=== PATIENT | female | born 1960 | race African-American/Black ===

== ENCOUNTER 2020-03-22 21:58 | Observation (INO) | payer OTHER ==
[~2020-03-22] VITALS: Ht 165.1 cm; Wt 108.6 kg
[2020-03-22] MEDS ORDERED: IV RINGERS SOLUTION,LACTATED 1,000 ML IV SCH (22:30)
[2020-03-22] MEDS ORDERED: NITROGLYCERIN OINT 1 GM PACKET. TP ONE (22:30)
[2020-03-22] MEDS ORDERED: ASPIRIN CHEWABLE 81 MG TABLET. PO ONE (22:30)
--- NOTE | 2020-03-22 22:39 | RAD ---
Exam: Chest 2 views INDICATION: Chest pain TECHNIQUE: Frontal and lateral views the chest Comparisons: None FINDINGS: The cardiomediastinal silhouette and pulmonary vessels are within normal limits. The lung and pleural spaces are clear. IMPRESSION: No acute cardiopulmonary process. Electronically signed by: Abhijeet Davenport MD (03/22/2020 10:36 PM) [id number]
[2020-03-22 22:50] LABS: BASO # 0.1 x10^3/uL (0.0-0.2); BASO % 1 % (0-3); EOS # 0.2 x10^3/uL (0.0-0.7); EOS % 4 % (0-3); HEMOGLOBIN 13.6 g/dL (12.0-15.5); LYMPH # 2.3 x10^3/uL (1.0-4.8); LYMPH % 48 % (24-48); MEAN CORPUSCULAR HEMOGLOBIN 29 pg (25-35); MEAN CORPUSCULAR HGB CONC 34 g/dL (31-37); MEAN CORPUSCULAR VOLUME 84 fL (79-100); MONO # 0.3 x10^3/uL (0.0-1.1); MONO % 7 % (0-9); NEUT % 41 % (31-73); PLATELET COUNT 189 x10^3/uL (140-400); RED BLOOD COUNT 4.75 x10^6/uL (3.50-5.40); RED CELL DISTRIBUTION WIDTH 14.5 % (11.5-14.5); WHITE BLOOD COUNT 4.8 x10^3/uL (4.0-11.0)
[2020-03-22 23:01] LABS: ANION GAP 9 (6-14); BLOOD UREA NITROGEN 20 mg/dL (7-20); CALCIUM 9.3 mg/dL (8.5-10.1); CARBON DIOXIDE 28 mmol/L (21-32); CHLORIDE 102 mmol/L (98-107); GFR 56.7; GLUCOSE 111 mg/dL (70-99); SODIUM 139 mmol/L (136-145)
--- NOTE | 2020-03-22 23:09 | PHYS DOC ---
Past History Past Medical History: High Cholesterol, Hypertension, Other Additional Past Medical Histor: BORERLINE DM Past Surgical History: , Hysterectomy, Tubal ligation Alcohol Use: Occasionally General Adult EDM: Chief Complaint: CHEST PAIN HPI: HPI: ..." I got this chest pain tonight...here in the center.. it is about gone now...the [employer] administrator's gave me some nitro..and aspirin...I do have high cholesterol...but never had this patric chest pain before...." Patient is a 59 year old female who presents with above chest pain that started in the center of her chest and radiated to the left side. Onset of pain was approximately 1800 hrs. Patient rated her pain 4 out of 10 at that time however pain markedly reduced after 1 nitro and aspirin given by paramedics. Does have past history of elevated cholesterol and borderline diabetes and hypertension. Was a former smoker 30 years ago but has not smoked the past 30 years. Patient denies any trauma. Patient never had a heart catheter stress test. Patient normally follows at [facility]. There is no specific history of cardiac disorder. No history of pulmonary embolisms or DVTs. Review of Systems: Review of Systems: Constitutional: Denies fever or chills Eyes: Denies change in visual acuity HENT: Denies nasal congestion or sore throat Respiratory: Denies cough or shortness of breath Cardiovascular: Complaints of chest pain GI: Denies abdominal pain, nausea, vomiting, bloody stools or diarrhea : Denies dysuria Musculoskeletal: Denies back pain or joint pain Integument: Denies rash Neurologic: Denies headache, focal weakness or sensory changes Endocrine: Denies polyuria or polydipsia Lymphatic: Denies swollen glands Psychiatric: Denies depression or anxiety Heart Score: HEART Score for Chest Pain: HEART Score for Chest Pain Response (Comments) Value History Slighlty/Non-Suspicious 0 ECG Normal 0 Age >45 - < 65 1 Risk Factors 1 or 2 Risk Factors 1 Troponin < Normal Limit 0 Total 2 Risk Factors: Risk Factors: DM, Current or recent (<one month) smoker, HTN, HLP, family history of CAD, obesity. Risk Scores: Score 0 - 3: 2.5% MACE over next 6 weeks - Discharge Home Score 4 - 6: 20.3% MACE over next 6 weeks - Admit for Clinical Observation Score 7 - 10: 72.7% MACE over next 6 weeks - Early Invasive Strategies Family History: Family History: Noncontributory Current Medications: Current Meds: Current Medications Medications (Trade) Dose Ordered Sig/Connie Start Time Stop Time Status Last Admin Dose Admin Aspirin (Aspirin Chewable) 324 mg 1X ONCE 03/22/20 22:30 03/22/20 22:31 DC Lactated Ringer's 1,000 ml @ 1,000 mls/hr Q1H 03/22/20 22:30 03/22/20 23:29 03/22/20 22:31 1,000 MLS/HR Nitroglycerin (Nitro-Bid Oint) 0.5 inch 1X ONCE 03/22/20 22:30 03/22/20 22:31 DC 03/22/20 22:31 0.5 INCH Allergies: Allergies: Allergies Coded Allergies Type Severity Reaction Last Updated Verified Sulfa (Sulfonamide Antibiotics) Allergy Intermediate 03/22/20 Yes bupropion Allergy Intermediate 03/22/20 Yes Physical Exam: PE: Constitutional: Mild distress, non-toxic appearance. [] HENT: Normocephalic, atraumatic, bilateral external ears normal, oropharynx moist, no oral exudates, nose normal. [] Eyes: PERRLA, EOMI, conjunctiva normal, no discharge. [] Neck: Normal range of motion, no tenderness, supple, no stridor. [] Cardiovascular:Heart rate regular rhythm, no murmur [] Lungs & Thorax: Bilateral breath sounds clear to auscultation [] Abdomen: Bowel sounds normal, soft, no tenderness, no masses, no pulsatile masses. Obese. Old surgery scars Skin: Warm, dry, no erythema, no rash. [] Back: No tenderness, no CVA tenderness. [] Extremities: No tenderness, no cyanosis, no clubbing, ROM intact, no edema. No cording appreciated Neurologic: Alert and oriented X 3, normal motor function, normal sensory function, no focal deficits noted. [] Psychologic: Affect anxious, judgement normal, mood normal. [] Current Patient Data: Labs: Laboratory Tests Test 03/22/20 22:35 White Blood Count 4.8 x10^3/uL (4.0-11.0) Red Blood Count 4.75 x10^6/uL (3.50-5.40) Hemoglobin 13.6 g/dL (12.0-15.5) Hematocrit 40.0 % (36.0-47.0) Mean Corpuscular Volume 84 fL (79-100) Mean Corpuscular Hemoglobin 29 pg (25-35) Mean Corpuscular Hemoglobin Concent 34 g/dL (31-37) Red Cell Distribution Width 14.5 % (11.5-14.5) Platelet Count 189 x10^3/uL (140-400) Neutrophils (%) (Auto) 41 % (31-73) Lymphocytes (%) (Auto) 48 % (24-48) Monocytes (%) (Auto) 7 % (0-9) Eosinophils (%) (Auto) 4 % (0-3) H Basophils (%) (Auto) 1 % (0-3) Neutrophils # (Auto) 2.0 x10^3uL (1.8-7.7) Lymphocytes # (Auto) 2.3 x10^3/uL (1.0-4.8) Monocytes # (Auto) 0.3 x10^3/uL (0.0-1.1) Eosinophils # (Auto) 0.2 x10^3/uL (0.0-0.7) Basophils # (Auto) 0.1 x10^3/uL (0.0-0.2) Prothrombin Time 9.5 SEC (9.4-11.4) Prothrombin Time INR 0.9 (0.9-1.1) Activated Partial Thromboplast Time 26 SEC (23-33) D-Dimer (Kamini) < 0.19 mg/L (0.00-0.50) Vital Signs: Vital Signs Date Time Temp Pulse Resp B/P (MAP) Pulse Ox O2 Delivery O2 Flow Rate FiO2 03/22/20 22:31 73 137/73 03/22/20 22:12 97.6 16 99 Room Air EKG: EKG: My interpretation EKG shows a sinus rhythm at 73 bpm. No findings acute morphology. [] Radiology/Procedures: Radiology/Procedures: [][address] [address] IMAGING REPORT Signed PATIENT: DARWIN MARCUM AACCOUNT: [id number] : 1960 LOCATION: ER AGE: 59 SEX: F EXAM STATUS: PRE ER ORD. PHYSICIAN: LUDIVINA PARADA MD REASON: CHEST PAIN PROCEDURE: CHEST PA & LATERAL Exam: Chest 2 views INDICATION: Chest pain TECHNIQUE: Frontal and lateral views the chest Comparisons: None FINDINGS: The cardiomediastinal silhouette and pulmonary vessels are within normal limits. The lung and pleural spaces are clear. IMPRESSION: No acute cardiopulmonary process. Electronically signed by: Abhijeet Nobles MD (03/22/2020 10:36 PM) [id number] DICTATED AND SIGNED BY: ABHIJEET NOBLES MD DATE: 03/22/202235 CC: LUDIVINA PARADA MD ~ Course & Med Decision Making: Course & Med Decision Making Pertinent Labs and Imaging studies reviewed. (See chart for details) Patient admitted to and to obtain cardiac consult. Impression: 1, Chest Pain 2. Hx Elevated Cholesterol 3. Hx. of HTN 4. Elevated AST 64 5. Hx. of Elevated glucose ( 111 to night) 6. Hx. of Elevated CK 317 [] Dragon Disclaimer: Dragon Disclaimer: This electronic medical record was generated, in whole or in part, using a voice recognition dictation system. Departure Departure: Disposition: 01 HOME/RESIDENCE PRIOR TO ADM Condition: STABLE Referrals: NON,STAFF (PCP) Dragon Disclaimer This chart was dictated in whole or in part using Voice Recognition software in a busy, high-work load, and often noisy Emergency Department environment. It may contain unintended and wholly unrecognized errors or omissions. LUDIVINA PARADA MD March 22, 2020 23:09
[2020-03-22 23:13] LABS: ALBUMIN 3.5 g/dL (3.4-5.0); ALT (SGPT) 39 U/L (14-59); LIPASE 119 U/L (73-393); MAGNESIUM 2.1 mg/dL (1.8-2.4); TOTAL BILIRUBIN 0.5 mg/dL (0.2-1.0); TOTAL PROTEIN 7.2 g/dL (6.4-8.2)
[2020-03-22 23:38] LABS: ALK PHOS 62 U/L (46-116); AST (SGOT) 64 U/L (15-37); POTASSIUM 5.1 mmol/L (3.5-5.1)
[2020-03-23] MEDS ORDERED: ONDANSETRON PF 4 MG/2 ML VIAL. IVP PRN
[2020-03-23] MEDS ORDERED: ACETAMINOPHEN 325 MG TABLET PO PRN
[2020-03-23] MEDS ORDERED: ANTI-COAG MONITOR BY PHARMACY. MC PRN (00:15)
[2020-03-23 01:30] VITALS: BP 144/85
[2020-03-23 01:50] LABS: DIRECT BILIRUBIN < 0.1 mg/dL (0.0-0.2)
--- NOTE | 2020-03-23 02:12 | EKG ---
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
[2020-03-23] MEDS ORDERED: CRESTOR10 MG PO (02:21)
[2020-03-23] MEDS ORDERED: ESCITALOPRAM OXA5 MG PO (02:34)
[2020-03-23] MEDS ORDERED: AMLO5TAB4 PO (02:34)
[2020-03-23] MEDS ORDERED: POTA20TA4 PO ×2 (02:34→12:34)
[2020-03-23] MEDS ORDERED: METF500T16 PO (02:34)
[2020-03-23] MEDS ORDERED: ASCO100T4 PO (02:34)
[2020-03-23] MEDS ORDERED: ZOLP5TAB PO (02:34)
[2020-03-23] MEDS ORDERED: CYAN-25 PO (02:34)
[2020-03-23] MEDS ORDERED: ALBU6.7H8 IH (02:34)
[2020-03-23] MEDS ORDERED: CHLO25TA9 PO (02:34)
[2020-03-23] MEDS ORDERED: LEVO88TA2 PO (02:34)
[2020-03-23] MEDS ORDERED: CETI10TA24 PO (02:34)
[2020-03-23] MEDS: ENOXAPARIN ** NOTE DOSE ** SYRINGE SQ SCH ×2 (03:09→08:15)
[2020-03-23 05:05] LABS: CALCIUM 8.6 mg/dL (8.5-10.1); CREATININE 0.9 mg/dL (0.6-1.0); GFR 77.5; POTASSIUM 3.2 mmol/L (3.5-5.1)
[2020-03-23 05:45] VITALS: BP 121/75
[2020-03-23] MEDS ORDERED: ALBUTEROL SULFATE 8GM INHALER. IH PRN (05:45)
[2020-03-23] MEDS ORDERED: ZOLPIDEM 5 MG TABLET. PO PRN (05:45)
[2020-03-23] MEDS ORDERED: LEVOTHYROXINE 88 MCG TABLET PO SCH (06:00)
[2020-03-23] MEDS ORDERED: POTASSIUM CHLORIDE 20 MEQ TABLET.ER. PO ONE (06:00)
[2020-03-23] MEDS ORDERED: ASPIRIN CHEWABLE 81 MG TABLET. PO SCH (08:00)
[2020-03-23] MEDS ORDERED: metFORMIN 500 MG TABLET PO SCH (08:00)
[2020-03-23] MEDS ORDERED: CITALOPRAM 10 MG TABLET. PO SCH (09:00)
[2020-03-23] MEDS ORDERED: CYANOCOBALAMIN (VITAMIN B-12) 1,000 MCG TABLET. PO SCH (09:00)
[2020-03-23] MEDS ORDERED: ASCORBIC ACID 500 MG TABLET PO SCH (09:00)
[2020-03-23] MEDS ORDERED: CHLORTHALIDONE 25 MG TABLET PO SCH (09:00)
[2020-03-23] MEDS ORDERED: CETIRIZINE HCL 10 MG TABLET PO SCH (09:00)
[2020-03-23] MEDS ORDERED: amLODIPine BESYLATE 5 MG TABLET PO SCH (09:00)
[2020-03-23] MEDS ORDERED: NITROGLYCERIN OINT 1 GM PACKET. TP SCH (09:00)
[2020-03-23 11:00] VITALS: BP 118/69
[2020-03-23] MEDS ORDERED: ESCITALOPRAM OX10 MG PO (12:34)
--- NOTE | 2020-03-23 13:13 | NUR ---
pt dc to home. Pt is able to verbalize understanding of poc and discharge. PT to have a stress test as OP per cardiology. PT given 2 RX and work note. PT left via WC with driving. Mayte Christian PROMOTIONS MANAGER CMSRN [place]-
--- NOTE | 2020-03-23 13:46 | HP ---
ADMIT DATE: 03/22/2020 HISTORY OF PRESENT ILLNESS: The patient is a 59-year-old -[place] female patient who presented to the Emergency Room complaining of retrosternal chest pain that she rated about 4/10 that lasted almost an hour. Denied any nausea or vomiting. Denied any diaphoresis, though she did complain of some shortness of breath. She was given an aspirin and one sublingual nitroglycerin and her pain has resolved. She was evaluated in the Emergency Room and has had an EKG, which showed that she was in sinus rhythm at 73 beats per minute. Chest x-ray was unremarkable. The cardiomediastinal silhouette and pulmonary vessels are within normal limits. Lungs and pleural spaces are clear. Her troponin was less than 0.017. The patient was admitted to do 2 more sets of cardiac enzymes, check her fasting lipid profile and consult the cardiology team. PAST MEDICAL HISTORY: Significant for hypertension, hyperlipidemia, depression, bronchial asthma as well as diabetes. She said that she is prediabetic and she is on metformin. PAST SURGICAL HISTORY: Significant for , tubal ligation, partial hysterectomy, and cataract extraction of her left eye. ALLERGIES: SHE IS ALLERGIC TO SULFA DRUGS AND WELLBUTRIN. MEDICATIONS: She is currently on following medications: She is on cetirizine for Zyrtec 10 mg once a day, albuterol sulfate inhaler every 4-6 hours as needed, Crestor 10 mg at bedtime, amlodipine 5 mg once a day, escitalopram oxalate 10 mg once a day, Ambien 5 mg daily, potassium chloride 20 mEq once a day, hydrochlorothiazide 25 mg once a day, metformin 500 mg twice a day, levothyroxine sodium 88 mcg once a day and vitamin B complex 1 tablet once a day, cyanocobalamin, ascorbic acid 100 mg once a day. FAMILY HISTORY: She has 1 older brother who is healthy, 2 younger brothers, 1 at age of 51 because of complication of diabetes, the other one at the age of 41 because of alcoholism, morbid obesity, bipolar disorder and hypertension. She does not know her biological father. Her mother at the age of 59 because of breast cancer. SOCIAL HISTORY: She is , has 4 children. She quit smoking 30 years ago. Drinks alcohol occasionally. She does not use any drugs. 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 REVIEW OF SYSTEMS: She has bilateral cataract, underwent cataract extraction, left eye. Denied any glaucoma or macular degeneration. Denied any earache, tinnitus, sensorineural deafness. Denied nosebleeds, stuffy nose or postnasal drip. Denied any sore throat, sore tongue, toothache, hoarseness of voice or difficulty swallowing. Denied any nausea, vomiting, diarrhea or constipation. Denied any hematemesis, melena, or hematochezia. Denied any dysuria, frequency or hematuria. Did complain of chest pain or shortness of breath. Denied any orthopnea or paroxysmal nocturnal dyspnea. Denied any cough, phlegm or hemoptysis. PHYSICAL EXAMINATION: GENERAL: On arrival to the Emergency Room, she looked well and was clearly in no apparent respiratory distress. No pallor, jaundice, cyanosis or thyromegaly. No jugular venous distention. No lower limb edema. VITAL SIGNS: Her heart rate was 76, blood pressure was 137/73, temperature was 97.6, respiratory rate was 16, and oxygen saturation was 99%. HEAD, EYES, EARS, NOSE AND THROAT: Showed normocephalic, atraumatic. NECK: Supple. HEART: Showed normal first and second heart sounds. No gallop, rub or murmur. CHEST: Clear to auscultation. No crepitation or rhonchi. ABDOMEN: Distended, soft, nontender. NEUROLOGICALLY: She was awake, alert, responding appropriately. All cranial nerves intact. EXTREMITIES: He moves extremities without difficulty. She ambulates without assistance or assistive devices. LABORATORY DATA: Her lab work on arrival showed a serum sodium 139, potassium 5.1. Her chloride was 102, bicarbonate was 28, anion gap of 9, BUN 20, creatinine 1.1, estimated GFR was 56 mL per minute. Her glucose 111, calcium was 9.3, magnesium was 2.1. Total bilirubin, AST, ALT, alkaline phosphatase were all normal. CK was 317. First set of cardiac enzymes showed troponin to be less than 0.017. Her total protein was 7.2, albumin was 3.5. Her serum lipase was 119. Her prothrombin time was 9.5, INR of 0.9, aPTT was 26 and D-dimer was less than 0.19. Her white cell count was 4800, hemoglobin 13, hematocrit 40, MCV 84 and platelet count of 189,000 and her EKG showed that she was in sinus rhythm at a heart rate of 72 beats per minute with no ST segment elevation and her chest x-ray showed cardiomediastinal silhouette and pulmonary vessels are within normal limits. The lungs and pleural spaces are clear. ASSESSMENT AND PLAN: The patient was admitted to do 2 more sets of cardiac enzymes, check her fasting lipid profile as well as thyroid function tests. We will consult the cardiology team and we will decide the further management accordingly. BENNETT GAYLE MD DR: BELL/tacho JOB#: [id number] / [id number]
--- NOTE | 2020-03-23 13:56 | DS ---
DATE OF DISCHARGE: 03/23/2020 HISTORY OF PRESENT ILLNESS: The patient is a 59-year-old -[place] female patient who came to the Emergency Room with a complaint of retrosternal chest pain with 4/10 in severity, associated with shortness of breath, but no nausea, no vomiting, no diaphoresis. It did radiate to her left upper extremity, lasted almost an hour, relieved by 1 sublingual nitroglycerin. She has had 3 sets of cardiac enzymes, showed troponin to be less than 0.017. Her EKG showed she was in sinus rhythm with no evidence of ST segment elevation or depression. Her fasting lipid profile showed her serum triglycerides were 137, total cholesterol ____, LDL was 63, VLDL was 27. Her HDL cholesterol was 53 and the ratio was 2. Her TSH was normal at 1.810. She was seen in consultation by the Cardiology team and acute myocardial infarction was ruled out. The patient was discharged home and she will have outpatient stress test. PHYSICAL EXAMINATION: GENERAL: When I saw her today, she looked well and was clearly in no apparent respiratory distress. No pallor, jaundice, cyanosis or thyromegaly. No jugular venous distention or limb edema. VITAL SIGNS: Her heart rate was 72, blood pressure 121/75, temperature was 97.5, respiratory rate was 18 and oxygen saturation was 97%. The rest of clinical examination is stable. LABORATORY DATA: Her lab work showed that she has 3 sets of cardiac enzymes that showed troponin to be less than 0.017. Her fasting lipid profile is well within normal range. DISCHARGE MEDICATIONS: The patient was discharged home to continue on Lexapro 10 mg once a day and potassium chloride 20 mEq twice a day. Should continue also on her albuterol sulfate as needed, amlodipine besylate for Norvasc 5 mg once a day, ascorbic acid 100 mg once a day, cetirizine 10 mg once a day, chlorthalidone 25 mg once a day, cyanocobalamin 2000 mcg once a day, levothyroxine sodium 88 mcg once a day, metformin 500 mg twice a day, Crestor 10 mg at bedtime and Ambien 5 mg at bedtime. FINAL DISCHARGE DIAGNOSES: 1. Chest pain, acute myocardial infarction ruled out. The patient has multiple other medical problems including: A. Hypertension. B. Hyperlipidemia. C. Diabetes. D. Bronchial asthma. E. Hypothyroidism. BENNETT GAYLE MD DR: Dominga JOB#: [id number] / [id number]
--- NOTE | 2020-03-23 15:25 | PDOC2 ---
CARDIAC CONSULT DATE OF CONSULT Date Of Consult DATE: 03/23/20 TIME: 15:20 REASON FOR CONSULT Reason for Consult Chest pain REFERRING PHYSICIAN Referring Physician Dr. Nicole SOURCE Source: Chart review, Patient HPI History of Present Illness The patient is a 59-year-old female who was admitted through the emergency room last evening for episodes of chest pain. The patient states the pain lasted approximately 1 hour and was associated with mild shortness of breath. Her EKG showed no acute ischemic changes. Chest x-ray showed no acute process. Troponin x2 has been normal. She has been feeling better overnight and denies any chest pain today. The patient does however have risk factors of hypertension, hyperlipidemia and borderline diabetes. She looks and feels well this morning. PAST MEDICAL HISTORY Cardiovascular: HTN, hyperipidemia Endocrine: Diabetes PAST SURGICAL HISTORY Past Surgical History: , Tubal Ligation, Hysterectomy FAMILY HISTORY Family History: Cancer, Diabetes SOCIAL HISTORY Smoke: Quit ALCOHOL: occassional CURRENT MEDICATIONS Current Medications Current Medications Aspirin (Aspirin Chewable) 324 mg 1X ONCE PO ; Start 03/22/20 at 22:30; Stop 03/22/20 at 22:31; Status DC Lactated Ringer's 1,000 ml @ 1,000 mls/hr Q1H IV Last administered on 03/22/20at 22:31; Start 03/22/20 at 22:30; Stop 03/22/20 at 23:29; Status DC Nitroglycerin (Nitro-Bid Oint) 0.5 inch 1X ONCE TP Last administered on 03/22/20at 22:31; Start 03/22/20 at 22:30; Stop 03/22/20 at 22:31; Status DC Ondansetron HCl (Zofran) 4 mg PRN Q4HRS PRN IVP NAUSEA/VOMITING; Start 03/23/20 at 00:00; Stop 03/23/20 at 14:08; Status DC Acetaminophen (Tylenol) 650 mg PRN Q4HRS PRN PO FEVER > 100.3'F; Start 03/23/20 at 00:00; Stop 03/23/20 at 14:08; Status DC Enoxaparin Sodium (Lovenox 100mg Syringe) 100 mg BID SQ Last administered on 03/23/20at 08:15; Start 03/23/20 at 00:30; Stop 03/23/20 at 14:08; Status DC Aspirin (Aspirin Chewable) 81 mg DAILYWBKFT PO Last administered on 03/23/20at 08:16; Start 03/23/20 at 08:00; Stop 03/23/20 at 14:08; Status DC Nitroglycerin (Nitro-Bid Oint) 0.5 inch TID TP ; Start 03/23/20 at 09:00; Stop 03/23/20 at 14:08; Status DC Info (Anti-Coagulation Monitoring By Pharmacy) 1 each PRN DAILY PRN MC SEE COMMENTS; Start 03/23/20 at 00:15; Stop 03/23/20 at 14:08; Status DC Potassium Chloride (Klor-Con) 40 meq 1X ONCE PO Last administered on 03/23/20at 06:24; Start 03/23/20 at 06:00; Stop 03/23/20 at 06:03; Status DC Amlodipine Besylate (Norvasc) 5 mg DAILY PO Last administered on 03/23/20at 08:16; Start 03/23/20 at 09:00; Stop 03/23/20 at 14:08; Status DC Cetirizine HCl (ZyrTEC) 10 mg DAILY PO Last administered on 03/23/20at 08:16; Start 03/23/20 at 09:00; Stop 03/23/20 at 14:08; Status DC Chlorthalidone (Thalitone) 25 mg DAILY PO Last administered on 03/23/20at 08:15; Start 03/23/20 at 09:00; Stop 03/23/20 at 14:08; Status DC Cyanocobalamin (Vitamin B-12) 2,000 mcg DAILY PO Last administered on 03/23/20at 08:16; Start 03/23/20 at 09:00; Stop 03/23/20 at 14:08; Status DC Levothyroxine Sodium (Synthroid) 88 mcg DAILY06 PO Last administered on 03/23/20at 06:24; Start 03/23/20 at 06:00; Stop 03/23/20 at 14:08; Status DC Metformin HCl (Glucophage) 500 mg BIDWMEALS PO Last administered on 03/23/20at 08:15; Start 03/23/20 at 08:00; Stop 03/23/20 at 14:08; Status DC Potassium Chloride (Klor-Con) 20 meq BID PO ; Start 03/23/20 at 21:00; Stop 03/02 01/18 at 14:08; Status DC Zolpidem Tartrate (Ambien) 5 mg PRN QHS PRN PO INSOMNIA; Start 03/23/20 at 05:45; Stop 03/23/20 at 14:08; Status DC Ascorbic Acid (Vitamin C) 500 mg DAILY PO Last administered on 03/23/20at 08:16; Start 03/23/20 at 09:00; Stop 03/23/20 at 14:08; Status DC Citalopram Hydrobromide (CeleXA) 10 mg DAILY PO Last administered on 03/23/20at 08:15; Start 03/23/20 at 09:00; Stop 03/23/20 at 14:08; Status DC Atorvastatin Calcium (Lipitor) 40 mg QHS PO ; Start 03/23/20 at 21:00; Stop 03/02 01/18 at 14:08; Status DC Albuterol Sulfate (Ventolin Hfa Inhaler) 1 puff PRN DAILY PRN IH SHORTNESS OF BREATH; Start 03/23/20 at 05:45; Stop 03/23/20 at 14:08; Status DC Active Scripts Active Klor-Con M20 (Potassium Chloride) 20 Meq Tab.er.prt 1 Tab PO BID 30 Days Escitalopram Oxalate 10 Mg Tablet 1 Tab PO DAILY Reported Vitamin C (Ascorbic Acid) 100 Mg Tablet 1 Tab PO DAILY 30 Days Vitamin B-12 (Cyanocobalamin (Vitamin B-12)) 1,000 Mcg Tablet 2 Tab PO DAILY 30 Days Proventil Hfa (Albuterol Sulfate) 6.7 Gm Hfa.aer.ad 6.7 Gm IH PRN PRN Zyrtec (Cetirizine Hcl) 10 Mg Tablet 10 Mg PO DAILY Ambien (Zolpidem Tartrate) 5 Mg Tablet 5 Mg PO PRN QHS PRN Synthroid (Levothyroxine Sodium) 88 Mcg Tablet 1 Tab PO DAILY Metformin Hcl 500 Mg Tablet 1 Tab PO BID Chlorthalidone (Chlorthalidone) 25 Mg Tablet 25 Mg PO DAILY Norvasc (Amlodipine Besylate) 5 Mg Tablet 1 Tab PO DAILY Crestor (Rosuvastatin Calcium) 10 Mg Tablet 10 Mg PO HS ALLERGIES Allergies: Coded Allergies: Sulfa (Sulfonamide Antibiotics) (Verified Allergy, Intermediate, 5/22/20) bupropion (Verified Allergy, Intermediate, 03/22/20) ROS Cardiovascular: yes: Chest Pain PHYSICAL EXAM General: No acute distress HEENT: Atraumatic Lungs: Clear to auscultation Heart: Regular rate, Normal S2 Abdomen: Normal bowel sounds VITALS Vital Signs Vital Signs Date Time Temp Pulse Resp B/P (MAP) Pulse Ox O2 Delivery O2 Flow Rate FiO2 03/23/20 11:00 98.3 74 20 118/69 (85) 98 Room Air LABS LABS Laboratory Tests Test 03/22/20 22:35 03/23/20 00:36 03/23/20 04:45 White Blood Count 4.8 x10^3/uL (4.0-11.0) Red Blood Count 4.75 x10^6/uL (3.50-5.40) Hemoglobin 13.6 g/dL (12.0-15.5) Hematocrit 40.0 % (36.0-47.0) Mean Corpuscular Volume 84 fL (79-100) Mean Corpuscular Hemoglobin 29 pg (25-35) Mean Corpuscular Hemoglobin Concent 34 g/dL (31-37) Red Cell Distribution Width 14.5 % (11.5-14.5) Platelet Count 189 x10^3/uL (140-400) Neutrophils (%) (Auto) 41 % (31-73) Lymphocytes (%) (Auto) 48 % (24-48) Monocytes (%) (Auto) 7 % (0-9) Eosinophils (%) (Auto) 4 % (0-3) Basophils (%) (Auto) 1 % (0-3) Neutrophils # (Auto) 2.0 x10^3uL (1.8-7.7) Lymphocytes # (Auto) 2.3 x10^3/uL (1.0-4.8) Monocytes # (Auto) 0.3 x10^3/uL (0.0-1.1) Eosinophils # (Auto) 0.2 x10^3/uL (0.0-0.7) Basophils # (Auto) 0.1 x10^3/uL (0.0-0.2) Prothrombin Time 9.5 SEC (9.4-11.4) Prothromb Time International Ratio 0.9 (0.9-1.1) Activated Partial Thromboplast Time 26 SEC (23-33) D-Dimer (Kamini) < 0.19 mg/L (0.00-0.50) Sodium Level 139 mmol/L (136-145) 140 mmol/L (136-145) Potassium Level 5.1 mmol/L (3.5-5.1) 3.2 mmol/L (3.5-5.1) Chloride Level 102 mmol/L (98-107) 104 mmol/L (98-107) Carbon Dioxide Level 28 mmol/L (21-32) 28 mmol/L (21-32) Anion Gap 9 (6-14) 8 (6-14) Blood Urea Nitrogen 20 mg/dL (7-20) 18 mg/dL (7-20) Creatinine 1.0 mg/dL (0.6-1.0) 0.9 mg/dL (0.6-1.0) Estimated GFR (Cockcroft-Gault) 56.7 77.5 Glucose Level 111 mg/dL (70-99) 142 mg/dL (70-99) Calcium Level 9.3 mg/dL (8.5-10.1) 8.6 mg/dL (8.5-10.1) Magnesium Level 2.1 mg/dL (1.8-2.4) Total Bilirubin 0.5 mg/dL (0.2-1.0) Direct Bilirubin < 0.1 mg/dL (0.0-0.2) Aspartate Amino Transf (AST/SGOT) 64 U/L (15-37) Alanine Aminotransferase (ALT/SGPT) 39 U/L (14-59) Alkaline Phosphatase 62 U/L (46-116) Creatine Kinase 317 U/L (26-192) Troponin I Quantitative < 0.017 ng/mL (0-0.055) < 0.017 ng/mL (0-0.055) < 0.017 ng/mL (0-0.055) GH-Gfw-W-Type Natriuretic Peptide 9 pg/mL (0-124) Total Protein 7.2 g/dL (6.4-8.2) Albumin 3.5 g/dL (3.4-5.0) Lipase 119 U/L (73-393) Thyroid Stimulating Hormone (TSH) 1.810 uIU/mL (0.358-3.740) Triglycerides Level 137 mg/dL (0-150) Cholesterol Level 143 mg/dL (0-200) LDL Cholesterol, Calculated 63 mg/dL (0-100) VLDL Cholesterol, Calculated 27 mg/dL (0-40) Non-HDL Cholesterol Calculated 90 mg/dL (0-129) HDL Cholesterol 53 mg/dL (40-60) Cholesterol/HDL Ratio 2.0 IMAGES IMAGES Chest x-ray without acute changes. EKG EKG Normal sinus rhythm without ischemic changes. ASSESSMENT/PLAN Assessment/Plan 1. Chest pain. Patient's pain has resolved. She looks and feels well today. EKG shows no ischemic changes. Troponin x2 has been normal and chest x-ray shows no acute processes. Patient is doing quite well today but does have risk factors of hypertension, hyperlipidemia and borderline diabetes. Would increase activities. If she is feeling well with increased activity she may be discharged from a cardiac viewpoint. She will need outpatient follow-up including a probable stress test. We will contact the patient to either schedule it through our office or through [facility]. 2. Hypertension. Controlled. 3. Hyperlipidemia. Continue present treatment. 4. Diabetes mellitus. Continue present treatments. Follow-up through her primary physician. Thank you for allowing us to participate in the care of your patient. BRIAN RICARDO MD March 23, 2020 15:25
[2020-03-23] MEDS ORDERED: ATORVASTATIN CALCIUM 20 MG TABLET PO SCH (21:00)
[2020-03-23] MEDS ORDERED: POTASSIUM CHLORIDE 20 MEQ TABLET.ER. PO SCH (21:00)
== END 2020-03-23 13:07 | disposition home or self-care (01) ==
LOC: ER 21:58 → 1 SOUTH 23:00
PROVIDERS: ADMIT Internal Medicine; ATTEND Internal Medicine
DX: R07.9 Chest pain, unspecified (principal); I10 Essential (primary) hypertension; E78.5 Hyperlipidemia, unspecified; E11.9 Type 2 diabetes mellitus without complications; E03.9 Hypothyroidism, unspecified; J45.909 Unspecified asthma, uncomplicated; F32.9 Major depressive disorder, single episode, unspecified; E78.00 Pure hypercholesterolemia, unspecified; Z87.891 Personal history of nicotine dependence; Z90.711 Acquired absence of uterus with remaining cervical stump
CPT/HCPCS: 36415; 71046; 80048; 80061; 80076; 82550; 83690; 83735; 83880; 84443; 84484; 85025; 85379; 85610; 85730; 86705; 86709; 86803; 87340; 93005; 96372; 99284; G0378; J1650; J7120; G0379; 99285-25

== ENCOUNTER → 2021-11-19 | Day surgery (SDC) | payer OTHER ==
[~2021-11-19] MED LIST: ALBU6.7H8 IH; AMLO5TAB4 PO; ASCO100T4 PO; CETI10TA74 PO; CHLO25TA9 PO; CRESTOR10 MG PO; CYAN-25 PO; ESCITALOPRAM OX10 MG PO; ESCITALOPRAM OXA5 MG PO; LEVO88TA2 PO; METF500T16 PO; POTA-121 PO; POTA20TA4 PO; ZOLP5TAB PO
[2021-11-19 14:17] VITALS: BP 158/80
== END | disposition home or self-care (01) ==
LOC: SURG 14:09
PROVIDERS: ATTEND Anesthesiology
DX: M54.50 Low back pain, unspecified (principal); M47.816 Spondylosis without myelopathy or radiculopathy, lumbar region; M48.02 Spinal stenosis, cervical region; M79.18 Myalgia, other site; M51.36 Other intervertebral disc degeneration, lumbar region; J45.909 Unspecified asthma, uncomplicated; E11.9 Type 2 diabetes mellitus without complications; G47.30 Sleep apnea, unspecified; I10 Essential (primary) hypertension; Z90.710 Acquired absence of both cervix and uterus; Z98.890 Other specified postprocedural states; Z79.899 Other long term (current) drug therapy; Z98.51 Tubal ligation status; Z87.891 Personal history of nicotine dependence; Z88.2 Allergy status to sulfonamides; Z88.8 Allergy status to other drugs, medicaments and biological substances
CPT/HCPCS: 99204; G0463

== ENCOUNTER → 2021-12-04 | Day surgery (SDC) | payer OTHER ==
[~2021-12-04] MED LIST changes: +0.9 % SODIUM CHLORIDE 10 ML VIAL. ONE; +DEXAMETHASONE SOD PHOS 10 MG/ML VIAL. ONE; +IOHEXOL 300 MG/ML 50 ML VIAL. ONE; +LIDOCAINE 1% PF 30 ML VIAL. ONE
[2021-12-04 10:34] VITALS: BP 129/71
--- NOTE | 2021-12-04 10:36 | NUR ---
Sarah returned to PACU following cervical epidural steroid injection at 10:25 AM. atient alert and oriented x4. No s/s of acute distress, however patient has complaints of nausea, blurred vision, and tired feeling. Vital signs obtained revealing results BP 97/56 p 63 r 18 t 96.7 O2 97% raa. FSBS result of 91 obtained. Patient offered crackers and juice. At 10:29 AM VS obtained again, BP 105/65 P 68 T 97.0 R 18 O2 99% RA. Patient able to transfer independently from wheelchair to stationary chair and finished crackers and juice. Patient verbalizes symptom relief and states, "I'm feeling much better. Vitals obtained at 10:35 AM- BP 129/71 T 97.3 O2 96% RA P 75 R 17. Patient discharged from PACU at 10:423 AM and denies further complaints or concerns. Addendum: 12/04/21 at 1047 by CHANI RAYO RN Patient discharged at PACU 10:[address] Rankin
== END | disposition home or self-care (01) ==
LOC: SURG 09:46
PROVIDERS: ATTEND Anesthesiology
DX: M54.12 Radiculopathy, cervical region (principal); E11.9 Type 2 diabetes mellitus without complications; J45.909 Unspecified asthma, uncomplicated; E07.9 Disorder of thyroid, unspecified; M48.02 Spinal stenosis, cervical region; M51.36 Other intervertebral disc degeneration, lumbar region; I10 Essential (primary) hypertension; F32.9 Major depressive disorder, single episode, unspecified; E03.9 Hypothyroidism, unspecified; M47.816 Spondylosis without myelopathy or radiculopathy, lumbar region; Z98.891 History of uterine scar from previous surgery; Z90.710 Acquired absence of both cervix and uterus; Z79.899 Other long term (current) drug therapy; Z79.84 Long term (current) use of oral hypoglycemic drugs; Z71.82 Exercise counseling; Z88.2 Allergy status to sulfonamides; Z98.51 Tubal ligation status; Z85.3 Personal history of malignant neoplasm of breast; Z87.891 Personal history of nicotine dependence
CPT/HCPCS: 62321; 82947; A4209; A4657; J1100; Q9967

== ENCOUNTER → 2022-01-01 | Day surgery (SDC) | payer OTHER ==
[~2022-01-01] MED LIST changes: -0.9 % SODIUM CHLORIDE 10 ML VIAL. ONE; -DEXAMETHASONE SOD PHOS 10 MG/ML VIAL. ONE; -IOHEXOL 300 MG/ML 50 ML VIAL. ONE; -LIDOCAINE 1% PF 30 ML VIAL. ONE
[2022-01-01 11:00] VITALS: BP 142/86
== END | disposition home or self-care (01) ==
LOC: SURG 10:46
PROVIDERS: ATTEND Anesthesiology
DX: M47.812 Spondylosis without myelopathy or radiculopathy, cervical region (principal); M48.02 Spinal stenosis, cervical region; M51.36 Other intervertebral disc degeneration, lumbar region; M47.816 Spondylosis without myelopathy or radiculopathy, lumbar region; I10 Essential (primary) hypertension; M79.18 Myalgia, other site; E11.9 Type 2 diabetes mellitus without complications; J45.909 Unspecified asthma, uncomplicated; G47.30 Sleep apnea, unspecified; Z90.710 Acquired absence of both cervix and uterus; Z98.891 History of uterine scar from previous surgery; Z79.899 Other long term (current) drug therapy; Z79.84 Long term (current) use of oral hypoglycemic drugs; Z88.2 Allergy status to sulfonamides
CPT/HCPCS: 99214; G0463